=== PATIENT | female | born 2000 | race American Indian/Alaskan Native ===

== ENCOUNTER 2021-11-05 17:15 | Emergency (ER) | payer MEDICAID ==
[2021-11-06] MEDS ORDERED: LIDOCAINE 2% UROJECT 10 ML JELLY UR NR (03:30)
[2021-11-06] MEDS ORDERED: LIDOCAINE-MPF (1%) 10 MG/1 ML VIAL 5 ML INFILTRATI ONE (03:30)
[2021-11-06] MEDS ORDERED: IBUPROFEN 600 MG TAB PO ONE (03:30)
[2021-11-06 03:31] LABS: HCG Qualitative,Urine Negative (Negative)
[2021-11-06] MEDS ORDERED: valACYclovir 500 MG TAB PO NR (03:31)
[2021-11-06] MEDS ORDERED: PHENAZOPYRIDINE 200 MG TAB PO ONE (03:31)
[2021-11-06 03:34] LABS: Bacteria,Urine 1+ /HPF (Negative); Mucus,Urine 1+ /HPF
[2021-11-06 03:37] LABS: Bilirubin,Urine Negative (Negative); Blood,Urine Negative (Negative); Color,Urine Straw (Yellow); Urobilinogen,Urine < 2.0 mg/dL (<2.0)
--- NOTE | 2021-11-06 04:46 | Emergency Department Report ---
ED Female HPI - General Chief complaint: Urogenital-Female Stated complaint: PELVIC PAIN Source: patient Mode of arrival: Ambulatory Limitations: No Limitations - History of Present Illness Initial comments: Patient is a A2 21-year-old -[place] female with no past medical history presents to the ED with complaint of acute onset persistent dysuria, pelvic pain, vaginal pain with painful lesions and thick vaginal discharge for the last 1 week after having an unprotected sexual intercourse with a new sexual partner about 2 weeks ago. Patient states that the pain has worsened in the last 4 days such that she is unable to void urine because of worsening painful vagina. Patient denies dizziness, syncope, fever, chills, nausea and vomiting, change in vision, low back pain, abdominal pain, diarrhea, chest pain or shortness of breath, sore throat, headache or urinary and bowel incontinence. MD Complaint: vaginal discharge, pelvic pain, possible STD (painful vaginal lesions with discharge), other (vaginal pain) -: Gradual, week(s) (1) Location: perineum, other (vagina) Radiation: non-radiating Severity: severe Severity scale (0 -10): 8 Quality: sharp, burning, aching Consistency: constant Improves with: none Worsens with: urination, intercourse, movement Are you Now?: No (no) Last Menstrual Period: 10/23/21 EDC: 07/30/22 Associated Symptoms: denies other symptoms, vaginal discharge, abdominal pain (suprapubic pain), dysuria, rash (Painful vaginal lesions with thick purulent discharge). denies: vaginal bleeding, nausea/vomiting, fever/chills, headaches, loss of appetite, hematuria, shortness of breath, syncope, weakness - Related Data Sexually active: Yes : 2 Para: 0 A: 2 Previous Rx's Medication Instructions Recorded Last Taken Type Dibucaine [Hemorrhoidal-Analgesic] 1 applic TP Q8H PRN #1 tube 11/06/21 Unknown Rx Doxycycline Hyclate 100 mg PO Q12H #28 cap 11/06/21 Unknown Rx Fluconazole (Nf) [Diflucan TAB] 150 mg PO ONCE #2 tablet 11/06/21 Unknown Rx Ibuprofen [Motrin] 600 mg PO Q8H PRN #30 tablet 11/06/21 Unknown Rx Ondansetron [Zofran Odt] 4 mg PO Q8HR PRN #15 tab.rapdis 11/06/21 Unknown Rx Valacyclovir HCl [Valacyclovir] 1,000 mg PO Q8H #30 tab 11/06/21 Unknown Rx metroNIDAZOLE [Flagyl] 500 mg PO Q12HR #14 tab 11/06/21 Unknown Rx Allergies Allergy/AdvReac Type Severity Reaction Status Date / Time No Known Allergies Allergy Verified 11/05/21 17:39 ED Review of Systems ROS: Stated complaint: PELVIC PAIN Other details as noted in HPI Constitutional: denies: chills, fever Eyes: denies: eye pain, eye discharge, vision change ENT: denies: ear pain, throat pain Respiratory: denies: cough, shortness of breath, wheezing Cardiovascular: denies: chest pain, palpitations Endocrine: no symptoms reported Gastrointestinal: abdominal pain (Suprapubic pain). denies: nausea, diarrhea Genitourinary: urgency, dysuria, frequency, discharge, other (Painful vaginal lesions) Musculoskeletal: denies: back pain, joint swelling, arthralgia Skin: denies: rash, lesions Neurological: denies: headache, weakness, paresthesias Psychiatric: denies: anxiety, depression Hematological/Lymphatic: denies: easy bleeding, easy bruising ED Past Medical Hx - Social History Smoking Status: Never Smoker Substance Use Type: None - Medications Home Medications: Home Medications Medication Instructions Recorded Confirmed Last Taken Type Dibucaine [Hemorrhoidal-Analgesic] 1 applic TP Q8H PRN #1 tube 11/06/21 Unknown Rx Doxycycline Hyclate 100 mg PO Q12H #28 cap 11/06/21 Unknown Rx Fluconazole (Nf) [Diflucan TAB] 150 mg PO ONCE #2 tablet 11/06/21 Unknown Rx Ibuprofen [Motrin] 600 mg PO Q8H PRN #30 tablet 11/06/21 Unknown Rx Ondansetron [Zofran Odt] 4 mg PO Q8HR PRN #15 tab.rapdis 11/06/21 Unknown Rx Valacyclovir HCl [Valacyclovir] 1,000 mg PO Q8H #30 tab 11/06/21 Unknown Rx metroNIDAZOLE [Flagyl] 500 mg PO Q12HR #14 tab 11/06/21 Unknown Rx ED Physical Exam - General Limitations: No Limitations General appearance: alert, in no apparent distress - Head Head exam: Present: atraumatic, normocephalic, normal inspection - Eye Eye exam: Present: normal appearance, PERRL, EOMI Pupils: Present: normal accommodation - ENT ENT exam: Present: normal exam, normal orophraynx, mucous membranes moist, TM's normal bilaterally, normal external ear exam - Neck Neck exam: Present: normal inspection, full ROM. Absent: tenderness - Respiratory Respiratory exam: Present: normal lung sounds bilaterally. Absent: respiratory distress, wheezes, rales, rhonchi, chest wall tenderness, accessory muscle use, decreased breath sounds, prolonged expiratory - Cardiovascular Cardiovascular Exam: Present: normal rhythm, tachycardia, normal heart sounds. Absent: systolic murmur, diastolic murmur, rubs, gallop - GI/Abdominal GI/Abdominal exam: Present: soft, normal bowel sounds. Absent: tenderness, guarding, rebound, hyperactive bowel sounds, hypoactive bowel sounds, organo megaly, bruit - External exam: Present: erythema, swelling, lesions (Multiple tender lesions in the labia majora and minora with thick purulent discharge) Speculum exam: Present: other (Patient unable to tolerate speculum and bimanual exam) Bi-manual exam: Present: other (Female solar thermal technician staff scientist present Ms. Lindsay) - Extremities Exam Extremities exam: Present: normal inspection, full ROM, normal capillary refill - Back Exam Back exam: Present: normal inspection, full ROM. Absent: tenderness, CVA tenderness (R), CVA tenderness (L), muscle spasm, paraspinal tenderness - Neurological Exam Neurological exam: Present: alert, oriented X3, CN II-XII intact, normal gait, reflexes normal - Psychiatric Psychiatric exam: Present: normal affect, normal mood - Skin Skin exam: Present: warm, dry, intact, normal color, rash (Palpable tender multiple vesicular lesions in the vaginal area extending from the perineum to the labia majora and labia minora with thick purulent discharge), erythema, vesicles ED Course Vital Signs 11/05/21 11/06/21 17:29 04:16 Temperature 98.2 F Pulse Rate 101 H Respiratory 20 16 Rate Blood Pressure 129/88 [Left] O2 Sat by Pulse 99 Oximetry ED Medical Decision Making - Medical Decision Making This is a A2 21-year-old -[place] female with no past medical history presents to the ED with complaint of acute onset persistent dysuria, pelvic pain, vaginal pain with painful lesions and thick vaginal discharge for the last 1 week after having an unprotected sexual intercourse with a new sexual partner about 2 weeks ago. Patient states that the pain has worsened in the last 4 days such that she is unable to void urine because of worsening painful vagina. In the ED, patient is alert and oriented x3 and is not in any distress. Urinalysis showed significant urinary tract infection. Wet prep test was positive for Gardnerella vaginalis consistent with bacterial vaginosis. Based on the history and physical exam findings, the patient symptoms are also due to genital herpes outbreak. Patient was treated in the ED empirically also for gonorrhea with Rocephin 1 g IM x1, also treated for pain and also given initial oral antiviral, valacyclovir 1 g p.o. x1 in the ED. On reevaluation, patient's pain is well controlled medication. Patient will discharge home on pain medications and advised to follow-up with the [facility] department for further STD testing including HIV and syphilis. Patient was discharged home on medications including antibiotics and antiviral medications. Patient was advised return to the ED immediately if symptoms get worse. - Differential Diagnosis Genital herpes; UTI; bacterial vaginosis; trichomonas; gonorrhea; chlamydia Critical care attestation.: If time is entered above; I have spent that time in minutes in the direct care of this critically ill patient, excluding procedure time. ED Disposition Clinical Impression: Acute urinary tract infection, Genital herpes in women, Bacterial vaginosis, STD (sexually transmitted disease), Chlamydia infection, Acute gonococcal cervicitis Disposition: 01 HOME / SELF CARE / HOMELESS Is pt being admited?: No Does the pt Need Aspirin: No Condition: Stable Instructions: Bacterial Vaginosis (ED), Bacterial Vaginosis, [id number], Chlamydia, Female, [id number], Urinary Tract Infection, Adult, [id number], C ervicitis, [id number], Pelvic Inflammatory Disease, [id number], Gonorrhea Additional Instructions: Take medication with food, drink plenty of fluids, follow-up with your [employer] physician or [facility] department for further STD testing including HIV and syphilis. Observe safe sexual practices strictly. Ensure that your sexual partner also gets treated at the health apartment to prevent further spread of the disease. Return to the ED immediately if symptoms get worse. Prescriptions: Fluconazole (Nf) [Diflucan TAB] 150 mg PO ONCE #2 tablet Doxycycline Hyclate 100 mg PO Q12H #28 cap metroNIDAZOLE [Flagyl] 500 mg PO Q12HR #14 tab Dibucaine [Hemorrhoidal-Analgesic] 1 applic TP Q8H PRN #1 tube PRN Reason: Pain , Severe (7-10) Ibuprofen [Motrin] 600 mg PO Q8H PRN #30 tablet PRN Reason: Pain Valacyclovir HCl [Valacyclovir] 1,000 mg PO Q8H #30 tab Ondansetron [Zofran Odt] 4 mg PO Q8HR PRN #15 tab.rapdis PRN Reason: Nausea Referrals: [facility] [Outside] - 7-10 days Forms: STI Treatment and Prevention, Work/School Release Form(ED) Time of Disposition: 04:51 Print Language: THAI
[2021-11-06 05:28] VITALS: BP 111/80
== END 2021-11-06 05:28 | disposition home or self-care (01) ==
LOC: ED 17:15
DX: N39.0 Urinary tract infection, site not specified (principal); A60.04 Herpesviral vulvovaginitis; N76.0 Acute vaginitis; B96.89 Other specified bacterial agents as the cause of diseases classified elsewhere; A74.9 Chlamydial infection, unspecified; A54.03 Gonococcal cervicitis, unspecified; Z20.2 Contact with and (suspected) exposure to infections with a predominantly sexual mode of transmission
CPT/HCPCS: 81001; 81025; 87086; 87210; 99284; J0696; 99283

== ENCOUNTER 2021-11-09 02:56 | Emergency (ER) | payer MEDICAID ==
[2021-11-09 03:14] VITALS: BP 108/72
[2021-11-09] MEDS ORDERED: LIDOCAINE VISCOUS 2% 15 ML ORAL LIQD MM NR ×2 (06:00→06:15)
[2021-11-09] MEDS ORDERED: LIDOCAINE 2% UROJECT 10 ML JELLY UR ONE (06:40)
== END 2021-11-09 15:00 | disposition left against medical advice (07) ==
LOC: ED 02:56
DX: R10.2 Pelvic and perineal pain (principal); R42 Dizziness and giddiness; Z53.21 Procedure and treatment not carried out due to patient leaving prior to being seen by health care provider